=== PATIENT | male | born 1975 | race Caucasian/White ===

== ENCOUNTER 2022-08-05 11:23 | Emergency (ER) | payer OTHER ==
[2022-08-05 12:39] LABS: HEMOGLOBIN 13.8 gm/dl (14.0-17.5); RED BLOOD COUNT 4.16 M/UL (4.20-5.50); WHITE BLOOD COUNT 3.9 K/UL (4.5-11.0)
[2022-08-05 13:03] LABS: BUN/CREATININE RATIO 14 (0-10)
== END 2022-08-05 14:35 | disposition home or self-care (01) ==
LOC: ER1 11:23
PROVIDERS: Physician Assistant
DX: R55 Syncope and collapse (principal); D61.818 Other pancytopenia; G40.909 Epilepsy, unspecified, not intractable, without status epilepticus; Z87.19 Personal history of other diseases of the digestive system; Z94.4 Liver transplant status; Z88.0 Allergy status to penicillin; Z88.5 Allergy status to narcotic agent
CPT/HCPCS: 70450; 71045; 80053; 81001; 82550; 82553; 82962; 84439; 84443; 84484; 85025; 87040; 87086; 93005; 99284